=== PATIENT | female | born 1940 | race Caucasian/White ===

== ENCOUNTER → 2021-01-04 | Outpatient (CLI) | payer MEDICARE ==
[~2021-01-04] MED LIST: CALCIUM600 MG PO; HYDROCODON-ACE1 EAC9 PO; INDERAL PO; MAGNESIUM PO; PANTOPRA PO; PANTOPRAZOLE SO40 MG PO; PREDNISONE PO; TOPOMAX PO; VITAMIN D PO; [UNRECOGNIZED DRUG - OTHER]; [UNRECOGNIZED DRUG - OTHER] PO
== END ==
LOC: DX 10:49
PROVIDERS: ATTEND Otolaryngology
DX: R13.13 Dysphagia, pharyngeal phase (principal); K21.9 Gastro-esophageal reflux disease without esophagitis; Z85.21 Personal history of malignant neoplasm of larynx
CPT/HCPCS: 74230